=== PATIENT | male | born 1990 | race Caucasian/White ===

== ENCOUNTER 2017-03-12 10:19 | Emergency (ER) | payer SELFPAY ==
[~2017-03-12] VITALS: Ht 175.3 cm; Wt 68.3 kg
[2017-03-12 10:20] VITALS: BP 138/82
[2017-03-12 11:26] LABS: BLOOD UREA NITROGEN 14 mg/dL (7-18)
== END 2017-03-12 11:59 | disposition home or self-care (01) ==
LOC: ED 11:39
DX: R53.83 Other fatigue (principal); G47.00 Insomnia, unspecified
CPT/HCPCS: 36415; 80048; 82040; 85025; 99284